=== PATIENT | male | born 1985 | race Caucasian/White ===

== ENCOUNTER 2020-03-11 10:06 | Emergency (ER) | payer OTHER ==
[~2020-03-11] VITALS: Ht 185.4 cm; Wt 97.5 kg
[2020-03-11] MEDS ORDERED: SYNTHROID75 MCG PO (10:16)
[2020-03-11] MEDS ORDERED: ZPAK PO (10:58)
[2020-03-11] MEDS ORDERED: VENTOLIN HFA 1818 GM INH (10:58)
[2020-03-11] MEDS ORDERED: PREDNISONE 20 M20 M1 PO (10:58)
[2020-03-11 11:19] VITALS: BP 138/72
== END 2020-03-11 11:20 | disposition home or self-care (01) ==
LOC: M.ERS 10:06
DX: J98.8 Other specified respiratory disorders (principal); Z20.828 Contact with and (suspected) exposure to other viral communicable diseases; E03.9 Hypothyroidism, unspecified